=== PATIENT | female | born 1975 | race Asian ===

== ENCOUNTER → 2018-09-04 | Outpatient (CLI) | payer OTHER ==
[~2018-09-04] MED LIST: ACET500T68 PO; IBUP-56 PO; NITR-105 PO
--- NOTE | 2018-09-06 14:32 | RADIOLOGY IMAGING REPORT ---
FACILITY: [facility] PATIENT NAME: Raji Beckford : 1975 MR: [id number] V: [id number] EXAM DATE: [id number] ORDERING PHYSICIAN: HENRY CID TECHNOLOGIST: Location: [facility] [place] Patient: Raji Beckford : 1975 Visit/Account:[id number] Date of Sevice: 09/06/2018 THYROID HISTORY: Thyromegaly COMPARISON: April 07, 2007 FINDINGS: SIZE: Right lobe: 5.4 x 1.6 x 2.3 cm cm Left lobe: 4. 1.4 x 1.5 cm cm Isthmus: 3 mm PARENCHYMA: Homogeneous. NODULES: Right lobe: * In the inferior right lobe there is a 1.9 x 1.4 x 0.9 cm complex partially cystic nodule. This ap pears much smaller when compared to the prior study at which time this mass measured 2.7 x 2 x 3.4 cm . Left lobe: * None discrete. Isthmus: * Right-sided isthmus there is a 1.2 x 0.9 x 0.4 cm well-circumscribed partially cystic hypoechoic n odule not definitively seen on the prior study VASCULARITY: Within normal limits. ADDITIONAL FINDINGS: None. IMPRESSION: In the inferior right lobe there is a 1.9 x 1.4 x 0.9 cm complex partially cystic nodule which is mar kedly decreased in size when compared to the prior study as described above Along the right-sided isthmus there is a 1.2 cm well-circumscribed partially cystic hypoechoic nodule REFERENCE: 2015 [place] [employer] Management Guidelines for Adult Patients with Thyroid Nodules and D ifferentiated Thyroid Cancer: The [place] [employer] Guidelines Task Force on Thyroid Nodul es and Differentiated Thyroid Cancer. SONOGRAPHIC PATTERNS: * Benign: Purely cystic nodules (no solid component); estimated risk of malignancy <1 percent; no bi opsy recommended. * Very Low Suspicion: Spongiform or partially cystic nodules without any of the sonographic features described in low, intermediate, or high suspicion patterns; estimated risk of malignancy <3 percent; consider FNA at > 2 cm (Observation without FNA is also a reasonable option). * Low Suspicion: Isoechoic or hyperechoic solid nodule, or partially cystic nodule with eccentric so lid areas, without microcalcification, irregular margin or ETE (extra-thyroidal extension), or taller than wide shape; estimated risk of malignancy 5-10 percent; recommend FNA at >1.5 cm. * Intermediate Suspicion: Hypoechoic solid nodule with smooth margins without microcalcifications, E TE (extra-thyroidal extension), or taller than wide shape; estimated risk of malignancy 10-20 percent ; recommend FNA at > 1 cm. * High Suspicion: Solid hypoechoic nodule or solid hypoechoic component of a partially cystic nodule with one or more of the following features: irregular margins (infiltrative, microlobulated), microc alcifications, taller than wide shape, rim calcifications with small extrusive soft tissue component, evidence of ETE (extra-thyroidal extension); estimated risk of malignancy >70-90 percent; recommend FNA at > 1 cm. NOTES: * Although a sonographically suspicious subcentimeter thyroid nodule without evidence of extrathyroi karthik extension or sonographically suspicious lymph nodes may be observed with close sonographic follow -up rather than pursuing immediate FNA, patient age and preference may modify decision-making. A > 50% interval increase in nodule volume and/or development of new suspicious sonographic features are felt to be a valid reasons for potential re-aspiration of a nodule previously shown to have benig n FNA cytology. Report Dictated By: Danay Ba MD at 09/06/2018 2:23 PM Report E-Signed By: Danay Ba MD at 09/06/2018 2:27 PM WSN:[email or web address]
== END ==
LOC: US 13:44
PROVIDERS: ATTEND Family Medicine
DX: E04.2 Nontoxic multinodular goiter (principal)

== ENCOUNTER → 2018-09-06 | Outpatient (CLI) | payer OTHER ==
--- NOTE | 2018-09-08 12:04 | RADIOLOGY IMAGING REPORT ---
FACILITY: [facility] PATIENT NAME: Raji Beckford : 1975 MR: [id number] V: [id number] EXAM DATE: ORDERING PHYSICIAN: HENRY CID TECHNOLOGIST: Location: [facility] Patient: Raji Beckford : 1975 Visit/Account:[id number] Date of Sevice: 09/06/2018 THYROID HISTORY: Thyromegaly COMPARISON: April 07, 2007 FINDINGS: SIZE: Right lobe: 5.4 x 1.6 x 2.3 cm cm Left lobe: 4. 1.4 x 1.5 cm cm Isthmus: 3 mm PARENCHYMA: Homogeneous. NODULES: Right lobe: * In the inferior right lobe there is a 1.9 x 1.4 x 0.9 cm complex partially cystic nodule. This ap pears much smaller when compared to the prior study at which time this mass measured 2.7 x 2 x 3.4 cm . Left lobe: * None discrete. Isthmus: * Right-sided isthmus there is a 1.2 x 0.9 x 0.4 cm well-circumscribed partially cystic hypoechoic n odule not definitively seen on the prior study VASCULARITY: Within normal limits. ADDITIONAL FINDINGS: None. IMPRESSION: In the inferior right lobe there is a 1.9 x 1.4 x 0.9 cm complex partially cystic nodule which is mar kedly decreased in size when compared to the prior study as described above Along the right-sided isthmus there is a 1.2 cm well-circumscribed partially cystic hypoechoic nodule REFERENCE: 2015 [place] [employer] Management Guidelines for Adult Patients with Thyroid Nodules and D ifferentiated Thyroid Cancer: The [place] [employer] Guidelines Task Force on Thyroid Nodul es and Differentiated Thyroid Cancer. SONOGRAPHIC PATTERNS: * Benign: Purely cystic nodules (no solid component); estimated risk of malignancy <1 percent; no bi opsy recommended. * Very Low Suspicion: Spongiform or partially cystic nodules without any of the sonographic features described in low, intermediate, or high suspicion patterns; estimated risk of malignancy <3 percent; consider FNA at > 2 cm (Observation without FNA is also a reasonable option). * Low Suspicion: Isoechoic or hyperechoic solid nodule, or partially cystic nodule with eccentric so lid areas, without microcalcification, irregular margin or ETE (extra-thyroidal extension), or taller than wide shape; estimated risk of malignancy 5-10 percent; recommend FNA at >1.5 cm. * Intermediate Suspicion: Hypoechoic solid nodule with smooth margins without microcalcifications, E TE (extra-thyroidal extension), or taller than wide shape; estimated risk of malignancy 10-20 percent ; recommend FNA at > 1 cm. * High Suspicion: Solid hypoechoic nodule or solid hypoechoic component of a partially cystic nodule with one or more of the following features: irregular margins (infiltrative, microlobulated), microc alcifications, taller than wide shape, rim calcifications with small extrusive soft tissue component, evidence of ETE (extra-thyroidal extension); estimated risk of malignancy >70-90 percent; recommend FNA at > 1 cm. NOTES: * Although a sonographically suspicious subcentimeter thyroid nodule without evidence of extrathyroi karthik extension or sonographically suspicious lymph nodes may be observed with close sonographic follow -up rather than pursuing immediate FNA, patient age and preference may modify decision-making. A > 50% interval increase in nodule volume and/or development of new suspicious sonographic features are felt to be a valid reasons for potential re-aspiration of a nodule previously shown to have benig n FNA cytology. Report Dictated By: Danay Ba MD at 09/06/2018 2:23 PM Report E-Signed By: Danay Ba MD at 09/06/2018 2:27 PM WSN:[email or web address]
== END ==
LOC: US 12:48
PROVIDERS: ATTEND Family Medicine
DX: E01.0 Iodine-deficiency related diffuse (endemic) goiter (principal); E04.1 Nontoxic single thyroid nodule
CPT/HCPCS: 76536

== ENCOUNTER → 2018-10-18 | Outpatient (CLI) | payer OTHER ==
[~2018-10-18] MED LIST changes: +MELA10TA3; +TRIA-20 PO
[2018-10-18 09:24] LABS: INR 0.97
--- NOTE | 2018-10-18 16:35 | RADIOLOGY IMAGING REPORT ---
FACILITY: PATIENT NAME: Raji Beckford : 1975 MR: [id number] V: [id number] EXAM DATE: [id number] ORDERING PHYSICIAN: ROXANNA HUMPHREYS TECHNOLOGIST: Location: [facility] [place] Patient: Raji Beckford : 1975 Visit/Account:[id number] Date of Sevice: 10/18/2018 Exam type: US BIOPSY LOC/INJ THYROID History: multinodular goiter Comparison: September 06, 2018. Findings: Informed consent was obtained. The right-sided the patient's neck was prepped and draped usual steri le fashion. Local anesthesia was accomplished 1% lidocaine. Under direct and continuous sonographic guidance four 25-gauge FNA biopsies were obtained through the complex nodule in the right lobe the t hyroid. Samples were given to the pathology lab technician for processing. The procedure was accompli shed without apparent complication. IMPRESSION: 1. Successful sonographically guided right-sided thyroid biopsy Report Dictated By: Danay Ba MD at 10/18/2018 4:28 PM Report E-Signed By: Danay Ba MD at 10/18/2018 4:29 PM WSN:[email or web address]
== END ==
LOC: US 01:38
PROVIDERS: ATTEND Otolaryngology
DX: Z01.812 Encounter for preprocedural laboratory examination (principal); Z04.1 Encounter for examination and observation following transport accident
CPT/HCPCS: 10005; 36415; 85610; 88104; 88172